=== PATIENT | female | born 1950 | race Caucasian/White ===

== ENCOUNTER → 2016-11-05 | Outpatient (CLI) | payer MEDICARE, OTHER ==
--- NOTE | 2016-11-06 13:52 | REPMRS ---
Patient History The patient states she had a clinical breast exam in Patient is postmenopausal. Family history of breast cancer in sister at age 50 or over and colorectal cancer in mother. Taking unspecified hormones for 17 years. Digital Woman Screen Mammo: November 05, 2016 - Exam #: [id number] Bilateral CC and MLO view(s) were taken. Technologist: Sita Barajas, Technologist Prior study comparison: 2014, digital bilateral screening mammo, performed at [facility]. January 02, 2014, digital bilateral screening mammo, performed at [facility]. FINDINGS: There are scattered fibroglandular densities. There has been no change in the appearance of the mammogram from the prior studies. There is a mild amount of scattered fibroglandular density which is fairly symmetric. There is no interval development of dominant mass, architectural distortion, or clustered microcalcification suggestive of malignancy. ASSESSMENT: BI-RADS/ACR category 1 mammogram. Negative. Recommendation Routine screening mammogram in 1 year (for women over age 40). This mammogram was interpreted with the aid of an FDA-approved computer-aided dectection system. Electronically Signed By: Selvin Jones MD 11/06/16 [id number]
== END | disposition home or self-care (01) ==
LOC: M WHC 10:53
PROVIDERS: ATTEND Obstetrics & Gynecology
DX: Z12.31 Encounter for screening mammogram for malignant neoplasm of breast (principal); Z78.0 Asymptomatic menopausal state; Z80.3 Family history of malignant neoplasm of breast; Z80.0 Family history of malignant neoplasm of digestive organs; Z92.29 Personal history of other drug therapy

== ENCOUNTER → 2017-11-09 | Outpatient (CLI) | payer MEDICARE, OTHER | LOC: M WHC 08:46 | DX: Z12.31 Encounter for screening mammogram for malignant neoplasm of breast (principal) | CPT/HCPCS: 77067 ==

== ENCOUNTER 2018-05-04 09:47 | Day surgery (SDC) | payer MEDICARE, OTHER ==
[2018-05-04] MEDS ORDERED: PROPOFOL 200 MG/20 ML VIAL As Ordered (10:09)
[2018-05-04] MEDS ORDERED: LIDOCAINE 2% INJ 100 MG/5 ML SDV (FOR ANES.) As Ordered (10:09)
[2018-05-04] MEDS: NS 1,000 ML IV (10:15)
== END 2018-05-04 12:15 | disposition home or self-care (01) ==
LOC: M OPP 09:47
DX: Z12.11 Encounter for screening for malignant neoplasm of colon (principal); Z80.0 Family history of malignant neoplasm of digestive organs; K64.0 First degree hemorrhoids; K57.30 Diverticulosis of large intestine without perforation or abscess without bleeding; R01.1 Cardiac murmur, unspecified; E03.9 Hypothyroidism, unspecified; F41.9 Anxiety disorder, unspecified; M19.90 Unspecified osteoarthritis, unspecified site; Z88.1 Allergy status to other antibiotic agents; Z79.82 Long term (current) use of aspirin; Z79.899 Other long term (current) drug therapy; Z80.3 Family history of malignant neoplasm of breast
CPT/HCPCS: G0105

== ENCOUNTER → 2019-02-08 | Outpatient (CLI) | payer MEDICARE, OTHER ==
[~2019-02-08] MED LIST: ALPR0.25 PO; ASPI81TA26 PO; ESTR625TA PO; LEVO75TA4 PO; SERT-138 PO
--- NOTE | 2019-02-08 13:55 | REPMRS ---
Patient History The patient states she had a clinical breast exam in 01/2019. Patient is postmenopausal. Family history of breast cancer at age 65 in sister, colorectal cancer at age 78 in mother. Benign excisional biopsy of the left breast, 1986. Taking unspecified hormones for 19 years. Digital Woman Screen Mammo: February 08, 2019 - Exam #: [id number] Bilateral CC and MLO view(s) were taken. Technologist: Marilou Gary, Technologist Prior study comparison: November 09, 2017, digital woman screen mammo performed at [facility]. November 05, 2016, digital woman screen mammo performed at [facility]. 2014, digital bilateral screening mammo, performed at [facility]. FINDINGS: There are scattered fibroglandular densities. There has been no change in the appearance of the mammogram from the prior studies. There is a mild amount of scattered fibroglandular density which is fairly symmetric. There is no interval development of dominant mass, architectural distortion, or clustered microcalcification suggestive of malignancy. 3-D tomosynthesis shows no additional findings. Assessment: BI-RADS/ACR category 1 mammogram. Negative Mammogram. Recommendation Routine screening mammogram of both breasts in 1 year (for women over age 40). This patient's Lifetime Breast Cancer RIsk is estimated at 7.8 %. This mammogram was interpreted with the aid of an FDA-approved computer-aided dectection system. Electronically Signed By: Selvin Jones MD 02/08/19 [id number]
--- NOTE | 2019-02-13 09:32 | DEXA ---
AP SPINE L1 - L4 1.104 -0.7 0.9 LT FEMUR TOTAL 0.862 -1.2 0.3 LT NECK 0.781 -1.9 -0.2 RT FEMUR TOTAL 0.894 -0.9 0.6 RT NECK 0.859 -1.3 0.4 TOTAL BODY TOTAL OTHER COMMENTS: Normal bone densitometry of the spine. There is low bone density of the hips. The density of the spine has decreased 3.6% since 08/16/2007. The density of the left hip has decreased 0.7% since 08/16/2007. The density of the right hip has decreased 3.7% since 08/16/2007. FOLLOW-UP: Recommendation for the next bone density exam: 2 years. STEFANY
== END ==
LOC: M WHC 11:41
PROVIDERS: ATTEND Nurse Practitioner Women's Health
DX: Z12.31 Encounter for screening mammogram for malignant neoplasm of breast (principal); Z13.820 Encounter for screening for osteoporosis; M85.9 Disorder of bone density and structure, unspecified; Z78.0 Asymptomatic menopausal state; Z79.890 Hormone replacement therapy

== ENCOUNTER 2019-11-30 17:17 | Emergency (ER) | payer MEDICARE, OTHER ==
[~2019-11-30] VITALS: Ht 160 cm; Wt 77.5 kg
--- NOTE | 2019-11-30 19:09 | REPVR ---
PROCEDURE INFORMATION: Exam: US Duplex Right Lower Extremity Veins, Limited Exam date and time: 11/30/2019 6:20 PM Age: 69 years old Clinical indication: Pain; Leg, upper; Right; Additional info: Pain and lump to leg, R/O clot TECHNIQUE: Imaging protocol: Real-time Duplex ultrasound of the Right Lower Extremity with 2-D tate scale, color Doppler flow and spectral waveform analysis with image documentation. Limited exam was focused on the right lower extremity veins. COMPARISON: No relevant prior studies available. FINDINGS: Right deep veins: Unremarkable. The common femoral, femoral and popliteal veins are patent without thrombus. Normal Doppler waveforms. Normal compressibility and/or augmentation response. Right superficial veins: Heterogeneously hypoechoic, occlusive thrombus in the greater saphenous vein. Saphenofemoral junction is patent without thrombus. Soft tissues: Unremarkable. IMPRESSION: 1. No sonographic evidence of deep vein thrombosis. 2. Heterogeneously hypoechoic, occlusive thrombus in the greater saphenous vein. Electronically signed by: Yariel Aquino On 11/30/2019 19:09:08 PM
[2019-11-30 21:01] LABS: BASO # 0.1 10^3/uL (0.0-0.2); BASO % 1.2 % (0.0-1.0); EOS # 0.5 10^3/uL (0.0-0.5); EOS % 4.4 % (0.0-3.0); HEMATOCRIT 41.2 % (36.0-47.0); HEMOGLOBIN 13.3 g/dl (12.0-15.5); LYMPH # 2.7 10^3/uL (1.5-5.0); LYMPH % 26.2 % (24.0-44.0); MEAN CORPUSCULAR HEMOGLOBIN 29.2 pg (27.0-33.0); MEAN CORPUSCULAR HGB CONC 32.3 g/dl (32.0-36.5); MEAN CORPUSCULAR VOLUME 90.5 fl (80.0-96.0); MONO # 0.9 10^3/uL (0.0-0.8); MONO % 8.9 % (0.0-5.0); NEUTROPHILS % 58.8 % (36.0-66.0); PLATELET COUNT, AUTOMATED 305 10^3/uL (150-450); RED BLOOD COUNT 4.55 10^6/uL (4.00-5.40); WHITE BLOOD COUNT 10.2 10^3/uL (4.0-10.0)
[2019-11-30 21:13] LABS: INR 0.89; PROTHROMBIN TIME 11.8 SECONDS (11.8-14.0)
[2019-11-30 21:14] LABS: PARTIAL THROMBOPLASTIN TIME 27.8 SECONDS (25.0-38.4)
[2019-11-30 21:20] LABS: BLOOD UREA NITROGEN 14 MG/DL (7-18); CALCIUM LEVEL 8.6 MG/DL (8.8-10.2); CARBON DIOXIDE LEVEL 30 MEQ/L (21-32); CHLORIDE LEVEL 107 MEQ/L (98-107); CREATININE FOR GFR 0.94 MG/DL (0.55-1.30); GLOMERULAR FILTRATION RATE > 60.0 (>39); GLUCOSE, FASTING 88 MG/DL (70-100); POTASSIUM SERUM 4.7 MEQ/L (3.5-5.1); SODIUM LEVEL 140 MEQ/L (136-145)
--- NOTE | 2019-11-30 21:26 | ECGEPIP ---
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
[2019-11-30] MEDS ORDERED: ELIQ5TAB PO (22:56)
[2019-11-30] MEDS ORDERED: APIXABAN 5 MG TAB (ELIQUIS) PO ONE (23:00)
[2019-11-30 23:19] VITALS: BP 135/54
== END 2019-11-30 23:21 | disposition home or self-care (01) ==
LOC: M ED 17:17
DX: I82.811 Embolism and thrombosis of superficial veins of right lower extremity (principal); Z79.899 Other long term (current) drug therapy; Z79.82 Long term (current) use of aspirin; Z88.1 Allergy status to other antibiotic agents; J30.2 Other seasonal allergic rhinitis

== ENCOUNTER → 2020-06-12 | Outpatient (CLI) | payer MEDICARE, OTHER ==
[~2020-06-12] MED LIST changes: +CRES10TA PO; +ELIQ5TAB PO
[2020-06-12 09:09] LABS: BASO # 0.1 10^3/uL (0.0-0.2); BASO % 1.6 % (0.0-1.0); EOS # 0.2 10^3/uL (0.0-0.5); EOS % 2.8 % (0.0-3.0); HEMATOCRIT 43.9 % (36.0-47.0); HEMOGLOBIN 13.9 g/dl (12.0-15.5); LYMPH # 1.4 10^3/uL (1.5-5.0); LYMPH % 20.8 % (24.0-44.0); MEAN CORPUSCULAR HGB CONC 31.7 g/dl (32.0-36.5); MEAN CORPUSCULAR VOLUME 91.6 fl (80.0-96.0); MONO # 0.5 10^3/uL (0.0-0.8); MONO % 7.3 % (0.0-5.0); NEUTROPHILS # 4.5 10^3/uL (1.5-8.5); NEUTROPHILS % 66.9 % (36.0-66.0); PLATELET COUNT, AUTOMATED 317 10^3/uL (150-450); RED BLOOD COUNT 4.79 10^6/uL (4.00-5.40); WHITE BLOOD COUNT 6.7 10^3/uL (4.0-10.0)
[2020-06-12 09:32] LABS: ALBUMIN 3.8 GM/DL (3.2-5.2); ALT/SGPT 24 U/L (12-78); BILIRUBIN,TOTAL 0.6 MG/DL (0.2-1.0); BLOOD UREA NITROGEN 9 MG/DL (7-18); CALCIUM LEVEL 9.4 MG/DL (8.8-10.2); CARBON DIOXIDE LEVEL 31 MEQ/L (21-32); CHLORIDE LEVEL 106 MEQ/L (98-107); CREATININE FOR GFR 0.79 MG/DL (0.55-1.30); GLOMERULAR FILTRATION RATE > 60.0 (>39); GLUCOSE, FASTING 84 MG/DL (70-100); POTASSIUM SERUM 4.5 MEQ/L (3.5-5.1); SODIUM LEVEL 142 MEQ/L (136-145)
--- NOTE | 2020-06-12 19:39 | ECGEPIP ---
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
--- NOTE | 2020-06-27 07:16 | REP ---
CHEST X-RAY: 06/12/20 CLINICAL: Plantar fibromatosis. Pre-op assessment. TECHNIQUE: PA and lateral. FINDINGS: Mediastinum and cardiac silhouette normal. Lung song clear. No focal consolidation, effusion or pneumothorax. Skeletal structures demonstrate age- related changes. IMPRESSION: No acute cardiopulmonary process or focal consolidation. MTDD
== END ==
LOC: M LAB 08:03
PROVIDERS: ATTEND Podiatrist
DX: M72.2 Plantar fascial fibromatosis (principal); M79.671 Pain in right foot

== ENCOUNTER → 2020-06-16 | Outpatient (CLI) | payer MEDICARE, OTHER | LOC: M LABSMTC 08:44 | PROVIDERS: ATTEND Anesthesiology | DX: Z01.812 Encounter for preprocedural laboratory examination (principal); Z20.828 Contact with and (suspected) exposure to other viral communicable diseases | CPT/HCPCS: C9803; U0003 ==

== ENCOUNTER 2020-06-21 06:21 | Day surgery (SDC) | payer MEDICARE, OTHER ==
[~2020-06-21] VITALS: Ht 162.6 cm; Wt 76.2 kg
[~2020-06-21 06:21] MED LIST changes: +LR 1,000 ML IV ONE; +VANCOMYCIN HCL 1,000 MG, VIAL MATE ADAPTER 1 EACH in D5W 250 ML IV ONE
[2020-06-21] MEDS ORDERED: LIDOCAINE 2% 100MG/5ML SDV (FOR ANES.) As Ordered ONE (07:02)
[2020-06-21] MEDS ORDERED: propofoL 500 MG/50 ML VIAL As Ordered ONE (07:02)
[2020-06-21] MEDS ORDERED: BUPIVACAINE HCL 0.5% 10ML VIAL As Ordered ONE (07:12)
[2020-06-21] MEDS ORDERED: dexameTHASONE 4 MG/ML 1ML VIAL (J1100 PER 1MG) As Ordered ONE (07:13)
[2020-06-21] MEDS ORDERED: LIDOCAINE 2% MDV 20ML VIAL As Ordered ONE (07:13)
[2020-06-21] MEDS ORDERED: BACITRACIN PWD 50,000 UNITS VIAL As Ordered ONE (07:13)
[2020-06-21] MEDS ORDERED: NEOSPORIN GU IRRIG 20 ML VIAL As Ordered ONE (07:14)
[2020-06-21] MEDS ORDERED: MIDAZOLAM INJ 2MG/2ML VIAL (J2250 PER 1MG) As Ordered ONE (07:38)
[2020-06-21] MEDS ORDERED: ONDANSETRON 4MG/2ML VIAL As Ordered ONE (07:39)
[2020-06-21 09:25] VITALS: BP 137/63
--- NOTE | 2020-06-28 10:29 | RO ---
DATE OF OPERATION: 06/21/2020 PREOPERATIVE DIAGNOSIS: Plantar fasciitis right foot. POSTOPERATIVE DIAGNOSIS: Plantar fasciitis right foot. SURGEON: lAessandro Sullivan DPM NEEDLEMAKER: None. ANESTHESIA: Local MAC. IRRIGATION: Dilute Bacitracin, Neomycin, and Polymyxin B solution. HEMOSTASIS: Ankle pneumatic tourniquet at 200 mmHg for 14 minutes. HARDWARE UTILIZED: None. DESCRIPTION OF OPERATION: On 06/21/2020, this 70-year-old white female was taken from her hospital room to the operating room and placed on the operating table in the supine position. Following the induction of IV sedation, local and regional anesthesia, the right lower extremity was prepped and draped in the usual aseptic manner. Attention was directed to the patient's right foot. There was noted to be thickening on the plantar fascia wherein observing the ultrasound. A 5 mm incision was then placed vertically over the medial aspect of the tuberosity of the 5th metatarsal. Utilizing dissection scissors, dissection was carried just inferior to the plantar fascia. A tunnel was then created with tissue distender. An Arthrex Centerline plantar fasciotomy blade was placed into the wound and under direct visualization 2/3 of the plantar fascia was cut. Intraoperative images were taken. The endoscope was then removed and the wound was flushed with copious amounts of dilute Bacitracin, Neomycin, and Polymyxin B solution. Subcutaneous tissues were coapted and maintained with 4-0 Monocryl in simple interrupted type fashion. Skin incision was coapted and maintained using 4-0 Prolene in a horizontal mattress type fashion. Following the completion of the surgical procedure, 4 mg of Dexamethasone Sodium Phosphate was instilled along the surgical site. Attention was directed towards bandaging. A sterile compressive bandage was applied consisting of Adaptic, 4 x 4's, 4 x 4 splint, Kerlix, and Coban. Ankle pneumatic tourniquet was rapidly deflated and instantaneous capillary filling time was noted to digits 1-5 of the patient's right foot. The patient, having apparently tolerated the surgical procedure well, was taken from the OR to the recovery room for further monitoring by the anesthesia department. Postoperative instructions were given upon discharge. STEFANY
== END 2020-06-21 09:33 | disposition home or self-care (01) ==
LOC: M SDC 06:21
PROVIDERS: ATTEND Podiatrist
DX: M72.2 Plantar fascial fibromatosis (principal); E03.9 Hypothyroidism, unspecified; E78.2 Mixed hyperlipidemia; Z86.718 Personal history of other venous thrombosis and embolism; Z79.899 Other long term (current) drug therapy; Z88.1 Allergy status to other antibiotic agents
CPT/HCPCS: 29893; 97116; 97530; J1100; J2250; J2405; J3370

== ENCOUNTER → 2021-05-20 | Outpatient (CLI) | payer MEDICARE, OTHER ==
[~2021-05-20] MED LIST changes: -LR 1,000 ML IV ONE; -VANCOMYCIN HCL 1,000 MG, VIAL MATE ADAPTER 1 EACH in D5W 250 ML IV ONE
--- NOTE | 2021-05-20 12:16 | REPMRS ---
Patient History The patient states she had a clinical breast exam in March 2021. Patient is postmenopausal. Family history of breast cancer at age 65 in sister, colorectal cancer at age 78 in mother. Benign excisional biopsy of the left breast, 1986. Took unspecified hormones for 19 years. Patient states no breast complaints today. Patient has signed MRS History Sheet. Digital Woman Screen Mammo: May 20, 2021 - Exam #: [id number] Bilateral CC and MLO view(s) were taken. Technologist: Marilou Gary, Technologist Prior study comparison: April 19, 2020, bilateral digital woman screen mammo performed at [facility]. February 08, 2019, bilateral digital woman screen mammo performed at [facility]. November 09, 2017, digital woman screen mammo performed at [facility]. FINDINGS: The breast tissue is almost entirely fat. The Volpara volumetric breast density category is: A. There has been no change in the appearance of the mammogram from the prior studies. There is no interval development of dominant mass, architectural distortion, or grouped microcalcification typical of malignancy. 3-D tomosynthesis shows no additional findings. Assessment: BI-RADS/ACR category 1 mammogram. Negative Mammogram. Recommendation Routine screening mammogram of both breasts in 1 year (for women over age 40). This patient's [facility] Lifetime Breast Cancer RIsk is estimated at 6.9 %. This mammogram was interpreted with the aid of an FDA-approved computer-aided dectection system. Electronically Signed By: Selvin Jones MD 05/20/21 [id number]
== END ==
LOC: M WHC 10:16
PROVIDERS: ATTEND Nurse Practitioner
DX: Z12.31 Encounter for screening mammogram for malignant neoplasm of breast (principal)

== ENCOUNTER → 2022-04-18 | Outpatient (CLI) | payer MEDICARE, OTHER | LOC: M LAB 11:00 | PROVIDERS: ATTEND Family Medicine | DX: R19.7 Diarrhea, unspecified (principal) ==

== ENCOUNTER → 2022-04-23 | Outpatient (REF) | payer MEDICARE, OTHER | LOC: M LAB REF 11:50 | PROVIDERS: ATTEND Family Medicine | DX: R19.7 Diarrhea, unspecified (principal) ==

== ENCOUNTER → 2022-07-07 | Outpatient (CLI) | payer MEDICARE, OTHER | LOC: M WHC 09:18 | PROVIDERS: ATTEND Family Medicine | DX: Z12.31 Encounter for screening mammogram for malignant neoplasm of breast (principal) ==

== ENCOUNTER → 2022-12-18 | Outpatient (CLI) | payer MEDICARE, OTHER ==
[~2022-12-18] MED LIST changes: +ZOLO100T PO
== END ==
LOC: M LABSMTC 09:06
PROVIDERS: ATTEND Anesthesiology
DX: Z01.812 Encounter for preprocedural laboratory examination (principal)

== ENCOUNTER 2022-12-23 10:18 | Day surgery (SDC) | payer MEDICARE, OTHER ==
[~2022-12-23] VITALS: Ht 160 cm; Wt 78.4 kg
[~2022-12-23 10:18] MED LIST changes: +NS 1,000 ML IV ONE
[2022-12-23] MEDS ORDERED: propofoL 200 MG/20 ML VIAL As Ordered ONE (12:05)
[2022-12-23] MEDS ORDERED: LIDOCAINE 2% 100MG/5ML SDV (FOR ANES.) As Ordered ONE (12:05)
[2022-12-23 12:25] VITALS: BP 136/63
== END 2022-12-23 12:30 | disposition home or self-care (01) ==
LOC: M OPP 10:18
PROVIDERS: ATTEND Internal Medicine Gastroenterology
DX: Z12.11 Encounter for screening for malignant neoplasm of colon (principal); Z80.0 Family history of malignant neoplasm of digestive organs; K64.0 First degree hemorrhoids; E78.00 Pure hypercholesterolemia, unspecified; E03.9 Hypothyroidism, unspecified; Z79.02 Long term (current) use of antithrombotics/antiplatelets; Z79.82 Long term (current) use of aspirin; Z79.890 Hormone replacement therapy; Z79.899 Other long term (current) drug therapy; Z88.1 Allergy status to other antibiotic agents; Z86.718 Personal history of other venous thrombosis and embolism

== ENCOUNTER 2023-03-24 08:52 | Emergency (ER) | payer MEDICARE, OTHER ==
[~2023-03-24] VITALS: Ht 160 cm; Wt 78.5 kg
[~2023-03-24 08:52] MED LIST changes: -NS 1,000 ML IV ONE
[2023-03-24 08:53] VITALS: TEMP 97.5
[2023-03-24] MEDS ORDERED: FLUT50SP17 (09:03)
[2023-03-24 11:05] VITALS: BP 132/74; O2SAT 98
== END 2023-03-24 11:07 | disposition home or self-care (01) ==
LOC: M ED 08:52
DX: I80.01 Phlebitis and thrombophlebitis of superficial vessels of right lower extremity (principal); E78.5 Hyperlipidemia, unspecified; R01.1 Cardiac murmur, unspecified; J30.1 Allergic rhinitis due to pollen; Z86.718 Personal history of other venous thrombosis and embolism; Z79.82 Long term (current) use of aspirin; Z88.1 Allergy status to other antibiotic agents

== ENCOUNTER → 2023-08-27 | Outpatient (CLI) | payer MEDICARE, OTHER ==
[~2023-08-27] MED LIST changes: +FLUT50SP17
== END ==
LOC: M WHC 08:34
PROVIDERS: ATTEND Family Medicine
DX: Z12.31 Encounter for screening mammogram for malignant neoplasm of breast (principal)

== ENCOUNTER → 2024-09-01 | Outpatient (CLI) | payer MEDICARE, OTHER ==
[~2024-09-01] MED LIST changes: -FLUT50SP17; +FLUTISP
== END ==
LOC: M WHC 08:02
PROVIDERS: ATTEND Family Medicine
DX: Z12.31 Encounter for screening mammogram for malignant neoplasm of breast (principal)

== ENCOUNTER → 2025-08-15 | Outpatient (CLI) | payer MEDICARE, OTHER | LOC: M WUC 13:48 | PROVIDERS: ATTEND Physician Assistant | DX: M25.572 Pain in left ankle and joints of left foot (principal) ==